=== PATIENT | female | born 1995 | race Caucasian/White ===

== ENCOUNTER 2019-04-14 12:11 | Outpatient (CLI) | payer OTHER ==
[~2019-04-14] VITALS: Ht 162.6 cm; Wt 90.7 kg
[~2019-04-14 12:11] MED LIST: PNV11TAB PO
[2019-04-14 12:48] VITALS: Ht 162.6 cm; Wt 90.7 kg
[2019-04-14 12:49] VITALS: BP 111/68; PULSE 77; RESP 19
--- NOTE | 2019-04-14 13:45 | PN ---
Triage Information Date/Time April 14, 2019 Reason for visit: IUGR (Sent in for antepartum testing because of possible IUGR) Weeks of Gestation 37 /Para 1 para 0 Diabetes: none Hypertention: none Additional information Patient had almost no weight gain during Currently in third trimester Objective Vital Signs Date Temp Pulse Resp B/P (MAP) Pulse Ox O2 O2 Flow FiO2 Time Delivery Rate 04/14/19 98.2 77 19 111/68 Room Air 12:49 (82) Heart Rate: 140's Heart Rate Comments Reactive Results/Medications Imaging Results 1. Single live intrauterine fetus, cephalic presentation, unchanged. The heart rate is 168 bpm. 2. Anterior placenta, grade 2, no previa or abruptio is evident. 3. Amniotic fluid index 13.5 cm. 4. Biophysical profile score: 04/14. Disposition: Discharge Assessment/Plan Patient is to refer back to change 4 days for another antepartum testing at which time estimation of weight is going to be Calculated AMANDA HART MD Apr 14, 2019 13:45
--- NOTE | 2019-04-14 13:57 | TRIAGE ---
OB Triage Datetime Report Generated by CPN: 04/14/2019 13:57 Datetime: 04/14/2019 12:56 Assessment Type: Triage Maternal Assessment Level of Consciousness: Keenly Alert, Responsive DTR's/Clonus: DTRs 2+; No Clonus Headache: Denies Blurred Vision: No Respiratory Effort: Unlabored; Regular Rhythm; Equal Expansion Breath Sounds, Left: Clear and Equal Breath Sounds, Right: Clear and Equal Nausea/Vomiting: Denies RUQ Epigastric Pain: Denies Lower Extremities Edema: None Degree: None Upper Extremities Edema: None Degree: None Facial Edema: None Fall Risk Assessment History of Falling: (0) No Secondary Diagnosis: (0) No Ambulatory Aid: (0) Bedrest/Nurse Assist IV Therapy: (0) No Gait: (0) Normal/Bedrest/Immobile Mental Status: (0) Oriented to Own Ability Fall Score: 0 Fall Risk Score Definition: No Risk: No action required Datetime: 04/14/2019 12:55 Time of Arrival: 04/14/2019 12:03 EGA: 37.4 Arrived By: Ambulatory Arrived From: Office Chief Complaint: R/O IUGR Movement: Present Contractions: Denies/Absent Rupture of Membranes: Denies Vaginal Bleeding: None Vaginal Discharge: Denies Recent Sexual Intercouse: Denies Abdominal Trauma: Not Applicable Patient Complaints: Other Time Provider Notified: 04/14/2019 12:55 Provider Notified: DR DUFF Initial Plan: NST BPP Labor Evaluation Frequency: OCCAS Monitor Mode: External Duration (sec)2399: 50-60 Quality: Mild Pattern: Normal: <= 5 Contractions in 10 Minutes Resting Tone [place]: Relaxed Heart Rate FHR Baseline Rate: 145 Monitor Mode: External US Variability: Moderate 6-25 bpm Accelerations: 15X15 Decelerations: None Category: Category I
== END 2019-04-14 13:55 | disposition home or self-care (01) ==
LOC: OBT 12:11 → L-D 12:13 → OBT 13:55
PROVIDERS: ATTEND Obstetrics & Gynecology
DX: O36.5930 Maternal care for other known or suspected poor fetal growth, third trimester, not applicable or unspecified (principal); Z3A.37 37 weeks gestation of pregnancy
CPT/HCPCS: 76818; Z7500; G0463

== ENCOUNTER 2019-04-18 09:52 | Outpatient (CLI) | payer OTHER ==
[~2019-04-18] VITALS: Ht 162.6 cm; Wt 91.9 kg
[2019-04-18 10:09] VITALS: Ht 162.6 cm; Wt 91.9 kg
[2019-04-18 10:10] VITALS: BP 109/67; PULSE 108; RESP 18
--- NOTE | 2019-04-18 11:50 | PN ---
Triage Information Date/Time LEDY 05/01/19 Patient presents for EFW BPP for suspected size greater than dates BPP 8 out of 8 EFW 337 0 g at 60.6 percentile NST reactive category 1 baseline 140/moderate variability/positive ac celerations/no decelerations [place] none Discharge to home with follow-up with primary OB Advised on premature rupture of membranes, labor, decreased movement and vaginal bleeding Advised on kick counts Reason for visit: Weeks of Gestation 38.1 /Para 1 Objective Vital Signs Date Temp Pulse Resp B/P (MAP) Pulse Ox O2 O2 Flow FiO2 Time Delivery Rate 04/18/19 98.1 108 18 109/67 10:10 (81) DARBY MCGILL MD Apr 18, 2019 11:50
--- NOTE | 2019-04-18 11:54 | TRIAGE ---
OB Triage Datetime Report Generated by CPN: 04/18/2019 11:54 Datetime: 04/18/2019 11:46 Labor Evaluation Frequency: occ Monitor Mode: External Duration (sec)2399: 60 Quality: Mild Pattern: Normal: <= 5 Contractions in 10 Minutes Resting Tone [place]: Relaxed Heart Rate FHR Baseline Rate: 145 Monitor Mode: External US Variability: Moderate 6-25 bpm Accelerations: 15X15 Decelerations: None Category: Category I Pain Assessment Pain Presence: None/Denies Pain Type: N/A Datetime: 04/18/2019 10:09 Assessment Type: Triage Maternal Assessment Level of Consciousness: Keenly Alert, Responsive DTR's/Clonus: DTRs 2+; No Clonus Headache: Denies Blurred Vision: No Respiratory Effort: Unlabored; Regular Rhythm; Equal Expansion Breath Sounds, Left: Clear and Equal Breath Sounds, Right: Clear and Equal Nausea/Vomiting: Denies RUQ Epigastric Pain: Denies Lower Extremities Edema: None Degree: None Upper Extremities Edema: None Degree: None Facial Edema: None Fall Risk Assessment History of Falling: (0) No Secondary Diagnosis: (0) No Ambulatory Aid: (0) Bedrest/Nurse Assist IV Therapy: (0) No Gait: (0) Normal/Bedrest/Immobile Mental Status: (0) Oriented to Own Ability Fall Score: 0 Fall Risk Score Definition: No Risk: No action required Datetime: 04/18/2019 10:08 Time of Arrival: 04/18/2019 09:48 EGA: 38.1 Arrived By: Ambulatory Arrived From: Home Chief Complaint: Follow up for nst, bpp, efw for ?iugr Movement: Present Contractions: Denies/Absent Rupture of Membranes: Denies Vaginal Bleeding: None Vaginal Discharge: Denies Recent Sexual Intercouse: Denies Abdominal Trauma: Not Applicable Patient Complaints: None Time Provider Notified: 04/18/2019 11:16 Provider Notified: [email or web address] Initial Plan: r/o iugr Datetime: 04/14/2019 13:44 Labor Evaluation Frequency: IRREGULAR Monitor Mode: External Duration (sec)2399: 50-80 Quality: Mild Pattern: Normal: <= 5 Contractions in 10 Minutes Resting Tone [place]: Relaxed Heart Rate FHR Baseline Rate: 145 Monitor Mode: External US FHR Baseline Changes: No Baseline Change Variability: Moderate 6-25 bpm Accelerations: 15X15 Decelerations: None Category: Category I Datetime: 04/14/2019 12:56 Fall Score: 0 Fall Risk Score Definition: No Risk: No action required Datetime: 04/14/2019 12:55 EGA: 37.4
== END 2019-04-18 11:55 | disposition home or self-care (01) ==
LOC: OBT 09:52 → L-D 09:53 → OBT 11:55
PROVIDERS: ATTEND Obstetrics & Gynecology
DX: O36.5930 Maternal care for other known or suspected poor fetal growth, third trimester, not applicable or unspecified (principal); Z3A.38 38 weeks gestation of pregnancy
CPT/HCPCS: 76815; 76818; Z7500; G0463

== ENCOUNTER 2019-04-22 11:31 | Outpatient (CLI) | payer OTHER ==
[~2019-04-22] VITALS: Ht 162.6 cm; Wt 91.3 kg
[2019-04-22 12:14] VITALS: Ht 162.6 cm; Wt 91.3 kg
[2019-04-22 12:15] VITALS: BP 98/67; PULSE 130; RESP 18
--- NOTE | 2019-04-22 13:47 | TRIAGE ---
OB Triage Datetime Report Generated by CPN: 04/22/2019 13:47 Datetime: 04/22/2019 13:32 Stage of : OB Triage Datetime: 04/22/2019 13:08 Labor Evaluation Frequency: 0 Monitor Mode: External Pattern: Normal: <= 5 Contractions in 10 Minutes Resting Tone [place]: Relaxed Heart Rate FHR Baseline Rate: 145 Monitor Mode: External US Variability: Moderate 6-25 bpm Accelerations: 10X10 Decelerations: None Category: Category I Pain Assessment Pain Scale: 0 Pain Presence: None/Denies Pain Type: N/A Pain Goal: 3 Pain Relief Measures: Comfort Measures Datetime: 04/22/2019 12:06 Stage of : OB Triage Assessment Type: Triage Maternal Assessment Level of Consciousness: Keenly Alert, Responsive DTR's/Clonus: DTRs 2+; No Clonus Headache: Denies Blurred Vision: No Respiratory Effort: Unlabored; Regular Rhythm; Equal Expansion Breath Sounds, Left: Clear and Equal Breath Sounds, Right: Clear and Equal Nausea/Vomiting: Denies RUQ Epigastric Pain: Denies Facial Edema: None Temperature Route: Axillary Fall Risk Assessment History of Falling: (0) No Secondary Diagnosis: (0) No Ambulatory Aid: (0) Bedrest/Nurse Assist IV Therapy: (0) No Gait: (0) Normal/Bedrest/Immobile Mental Status: (0) Oriented to Own Ability Fall Score: 0 Fall Risk Score Definition: No Risk: No action required Labor Evaluation Frequency: X1 Monitor Mode: External Duration (sec)2399: 50 Quality: Mild Pattern: Normal: <= 5 Contractions in 10 Minutes Resting Tone [place]: Relaxed Interventions: Sterile Vaginal Exam Heart Rate FHR Baseline Rate: 145 Monitor Mode: External US Variability: Moderate 6-25 bpm Accelerations: 10X10 Decelerations: None Category: Category I Pain Assessment Pain Scale: 3 Pain Presence: Intermittent Pain Type: Cramping; Contraction Pain Location: Abdomen Pain Goal: 3 Pain Relief Measures: Comfort Measures Vaginal Exam Dilatation (cms): 0.0 Exam By: S JG Membrane Status: Intact Datetime: 04/18/2019 11:49 Time of Arrival: 04/22/2019 11:25 EGA: 38.5 Arrived By: Ambulatory Arrived From: Home Chief Complaint: WOKE UP AT APPROX AT 1000 WITH PINK/RED DISCHARGE WHEN WIPING, ABDOMINAL CRAMPING APPROX Q 5, DENIES LEAKING OF FLUID Movement: Decreased Contractions: Irregular Rupture of Membranes: Denies Vaginal Bleeding: None Vaginal Discharge: Present Recent Sexual Intercouse: Denies Abdominal Trauma: Not Applicable Patient Complaints: Cramping Time Provider Notified: 04/22/2019 13:30 Provider Notified: [email or web address] Initial Plan: MONITOR, VE, bpp Datetime: 04/18/2019 10:09 Fall Score: 0 Fall Risk Score Definition: No Risk: No action required Datetime: 04/18/2019 10:08 EGA: 38.1 Datetime: 04/14/2019 12:56 Fall Score: 0 Fall Risk Score Definition: No Risk: No action required Datetime: 04/14/2019 12:55 EGA: 37.4
--- NOTE | 2019-04-22 20:01 | PN ---
Triage Information Date/Time 04/22/19 Reason for visit: Vag spotting / bleeding (and DFM) Weeks of Gestation 38w5d /Para primigravida Diabetes: none Hypertention: none Objective Vital Signs Date Temp Pulse Resp B/P (MAP) Pulse Ox O2 O2 Flow FiO2 Time Delivery Rate 04/22/19 97.9 130 18 98/67 (77) 12:15 Heart Rate: 150's Heart Rate Comments CAT I tracing Contractions: >10 Minutes Apart Exam VE closed Results/Medications Imaging Results BPP 04/14 [place] 12.5 Disposition: Discharge Assessment/Plan A IUP 38w5d NIL P discharge home with routine labor instructions RTH prEMA Reyes MD Apr 22, 2019 20:01
== END 2019-04-22 13:40 | disposition home or self-care (01) ==
LOC: OBT 11:31 → L-D 11:31 → OBT 13:40
PROVIDERS: ATTEND Obstetrics & Gynecology
DX: O46.8X3 Other antepartum hemorrhage, third trimester (principal); O36.8130 Decreased fetal movements, third trimester, not applicable or unspecified; Z3A.38 38 weeks gestation of pregnancy
CPT/HCPCS: 76818; Z7500; G0463

== ENCOUNTER 2019-04-24 03:16 | Inpatient (IN) | payer OTHER ==
[~2019-04-24] VITALS: Ht 162.6 cm; Wt 91.9 kg
[2019-04-24 03:30] VITALS: BP 123/74; PULSE 80; RESP 20
[2019-04-24] MEDS ORDERED: LACTATED RINGER'S 1,000 ML IV PRN (03:40)
[2019-04-24 03:52] VITALS: Ht 162.6 cm; Wt 91.9 kg
[2019-04-24] MEDS ORDERED: LIDOCAINE 1% (MPF) 30 ML INJ INJ PRN (04:00)
[2019-04-24] MEDS ORDERED: OXYTOCIN 30 UNITS/LR 500 ML IV SCH ×2 (04:00)
[2019-04-24] MEDS ORDERED: AMPICILLIN 2 GM/NS (PMX) 100 ML IV ONE (04:00)
[2019-04-24] MEDS ORDERED: OXYTOCIN 30 UNITS/LR 500 ML IV PRN ×2 (04:00→21:00)
[2019-04-24] MEDS ORDERED: BUTORPHANOL 2 MG INJ IV PRN ×2 (04:00)
[2019-04-24] MEDS ORDERED: IBUPROFEN 600 MG TAB PO PRN (04:00)
[2019-04-24] MEDS ORDERED: MISOPROSTOL 200 MCG TAB PR PRN ×2 (04:00→21:00)
[2019-04-24] MEDS ORDERED: CARBOPROST 250 MCG INJ IM PRN ×2 (04:00→21:00)
[2019-04-24] MEDS ORDERED: METHYLERGONOVINE 0.2 MG INJ IM PRN ×2 (04:00→21:00)
[2019-04-24] MEDS: LACTATED RINGER'S 1,000 ML IV SCH ×3 (04:19→16:38)
[2019-04-24] MEDS ORDERED: FENTAnyl 2MCG/ML-ROPIV 0.2% 100 ML BAG EPI SCH (07:30)
[2019-04-24] MEDS ORDERED: ONDANSETRON 4 MG INJ IV PRN (07:30)
[2019-04-24] MEDS ORDERED: NALOXONE (0.4 MG/ML) INJ IV PRN (07:30)
[2019-04-24] MEDS ORDERED: FENTAnyl 2MCG/ML-ROPIV 0.2% 100 ML ONE (07:30)
[2019-04-24] MEDS ORDERED: DIPHENHYDRAMINE 50 MG INJ IV PRN (07:30)
[2019-04-24] MEDS: AMPICILLIN 1 GM/NS (PMX) 50 ML IV SCH ×3 (08:52→16:38)
[2019-04-24] MEDS ORDERED: MINERAL OIL LIGHT 10 ML VIAL TOP ONE (10:00)
[2019-04-24 20:15] VITALS: BP 117/66; PULSE 67; RESP 18
[2019-04-24] MEDS ORDERED: WITCH HAZEL/GLYCERIN PAD PR PRN (21:00)
[2019-04-24] MEDS ORDERED: ZOLPIDEM 5 MG TAB PO PRN (21:00)
[2019-04-24] MEDS ORDERED: LANOLIN HPA 1 PKT TOP PRN (21:00)
[2019-04-24] MEDS ORDERED: BENZOCAINE 20% 56 ML SPRAY TOP PRN (21:00)
[2019-04-24] MEDS ORDERED: OXYCODONE/ASPIRIN (4.88/325) TAB PO PRN ×2 (21:00)
[2019-04-24] MEDS: SENNA/DOCUSATE NA (8.6MG/50MG) TAB PO SCH (21:37)
[2019-04-24] MEDS: IBUPROFEN 600 MG TAB PO SCH (23:50)
[2019-04-25 03:38] VITALS: BP 100/59; PULSE 70; RESP 17
[2019-04-25] MEDS: IBUPROFEN 600 MG TAB PO SCH ×4 (05:20→23:51)
[2019-04-25 08:30] VITALS: BP 100/50; PULSE 68; RESP 18
[2019-04-25] MEDS: SENNA/DOCUSATE NA (8.6MG/50MG) TAB PO SCH ×2 (09:13→20:39)
[2019-04-25 16:19] VITALS: BP 100/66; PULSE 96; RESP 18
[2019-04-25 19:30] VITALS: BP 113/68; PULSE 66; RESP 19
[2019-04-26 04:00] VITALS: BP 99/57; PULSE 75; RESP 19
[2019-04-26] MEDS: IBUPROFEN 600 MG TAB PO SCH ×2 (05:39→12:24)
[2019-04-26 09:00] VITALS: BP 102/57; PULSE 80; RESP 16
[2019-04-26] MEDS ORDERED: DIPHTH/TET/ACEL PERTUSS (ADULT) 0.5 ML VIAL IM* ONE (09:00)
[2019-04-26] MEDS: SENNA/DOCUSATE NA (8.6MG/50MG) TAB PO SCH (09:06)
== END 2019-04-26 18:22 | disposition home or self-care (01) | DRG 807 ==
LOC: OBT 03:16 → L-D 03:17 → OBT 03:40 → PP1 20:12
PROVIDERS: ADMIT Obstetrics & Gynecology; ATTEND Obstetrics & Gynecology
PROC: 10E0XZZ Delivery of Products of Conception, External Approach (ICD-10-PCS; principal; 2019-04-24)
PROC: 0UQGXZZ Repair Vagina, External Approach (ICD-10-PCS; 2019-04-24)
PROC: 0W8NXZZ Division of Female Perineum, External Approach (ICD-10-PCS; 2019-04-24)
PROC: 4A1HXCZ Monitoring of Products of Conception, Cardiac Rate, External Approach (ICD-10-PCS; 2019-04-24)
DX: O99.824 Streptococcus B carrier state complicating childbirth (principal); Z37.0 Single live birth; Z3A.38 38 weeks gestation of pregnancy; O71.4 Obstetric high vaginal laceration alone
CPT/HCPCS: 62322; 81001; 85025; 85610; 85730; 86592; 86850; 86900; 86901; 87086; 87340; 99464; G0463; J0290; J2590; J3010; J7120